=== PATIENT | male | born 1975 | race Native Hawaiian/Other Pacific Islander ===

== ENCOUNTER → 2021-09-29 | Outpatient (CLI) | payer OTHER ==
--- NOTE | 2021-09-29 23:53 | MR ---
EXAMINATION TYPE: MR lumbar spine wo con DATE OF EXAM: 09/29/2021 COMPARISON: NONE HISTORY: Lower back pain, radiating down right leg x 2 years. Radiculopathy per order. Herniated disc per patient. TECHNIQUE: Multiplanar, multisequence imaging of the lumbar spine is performed without IV contrast. FINDINGS: Sagittal images of the lumbar spine show vertebral body heights and alignment to appear sat isfactory. Disc desiccation at L4-L5 and L5-S1 levels. Moderate disc space narrowing L5-S1 level. Th e conus medullaris is normal in position and signal ending at L1-L2 disc space level. The bone marro w signal intensity is within normal limits. Axial images show T12-L1 through the L3-L4 levels to appear within normal limits. Axial images at L4-L5 level shows central disc protrusion mildly effacing the anterior thecal sac wit h mild facet arthropathy. Patent bilateral neural foramina. Axial images at L5-S1 level show [id number] facet arthropathy bilaterally. There is focal right paracentral disc protrusion mildly effacing the anterolateral thecal sac on axial image 6. There is mild to moderate left-sided neural foraminal narrowing sagittal image 4. Right-sided neural foramen i s patent. No suspicious retroperitoneal findings are seen. IMPRESSION: Mild to moderate degenerative changes in the mid to lower lumbar spine as detailed above.
== END | disposition home or self-care (01) ==
LOC: RADMRIMAIN 18:50
DX: M54.16 Radiculopathy, lumbar region (principal)
CPT/HCPCS: 72148